=== PATIENT | male | born 1955 ===

== ENCOUNTER 2025-04-30 06:27 | Day surgery (SDC) | payer BC, SELFPAY ==
[2025-04-16 14:07] VITALS: BMI 33.7
[2025-04-30] VITALS (13 sets, daily range): BP systolic 115–159; BP diastolic 72–92; BMI 33.7
--- NOTE | 2025-04-30 10:31 | HP.FOC2 ---
Focused History & Physical
Chief Complaint
HPI:
Chief Complaint: Right inguinal hernia
HPI / Indication for Planned Procedure: This is a 69-year-old male with a symptomatic right inguinal hernia, possible left. Will plan for a robotic right, possible left inguinal hernia repair with mesh.
Relevant Past Medical History: Negative
Relevant Social History: Negative
Relevant Family History: Negative
Relevant Past Surgical History: Negative
Review of Systems
Review of Pertinent Systems: All Systems Negative
Medication
See Medication form for detailed medications: Yes
Medication List (including Herbals & OTC):
Super Beta Prostate Advanced 1 tab PO DAILY 04/23/25
Triple Action Joint Health 1 cap PO DAILY 04/23/25
cyanocobalamin (vitamin B-12) 1,000 mcg capsule 1,000 mcg PO DAILY 04/23/25
ibuprofen 200 mg tablet 200 - 400 mg PO PRN PRN PAIN 04/23/25
multivitamin 1 tab PO DAILY 04/23/25
psyllium husk 2 cap PO DAILY 04/23/25
sildenafil 100 mg tablet 50 mg PO PRN PRN ED 04/23/25
Medications Reviewed: Yes
Allergies and Reactions
Patient has Allergies: No
Noted Allergies and Reactions:
Allergy/AdvReac Type Severity Reaction Status Date / Time
No Known Allergies Allergy Verified 04/23/25 09:12
Pertinent Physical Exam
All Other Systems: Negative
Head/Neck: Normal
Diagnosis / Assessment
This is a 69-year-old male with a symptomatic right inguinal hernia, possible left. Will plan for a robotic right, possible left inguinal hernia repair with mesh.
Plan / Procedure
This is a 69-year-old male with a symptomatic right inguinal hernia, possible left. Will plan for a robotic right, possible left inguinal hernia repair with mesh.
Anesthesia/Sedation to be done by Anesthesia Provider: Yes
[2025-04-30] MEDS: TYLENOL 1000 MG PO (10:43)
[2025-04-30] MEDS: NORMOSOL-R/PLASMALYTE-A 1000 IV (10:44)
--- NOTE | 2025-04-30 10:57 | W.SUR.PREOP ---
Pre-Operative Surgical Note
-
I have examined this patient prior to the performance of the scheduled procedure.
The patient's condition is unchanged from the time of the current History and
Physical and the patient is able to undergo the scheduled procedure.
--- NOTE | 2025-04-30 12:48 | W.IMMPOSTOP ---
Surgical Immed Post Op Note
-
Primary Surgeon: Lino Burk MD
Assisting Surgeon: None
Pre-op Diagnosis: Right inguinal hernia
Post-op Diagnosis: Bilateral inguinal hernias
Procedure Performed: Robotic bilateral inguinal hernia repairs with mesh
Anesthesia Type: General
Specimen / Cultures: None
Estimated Blood Loss: 3 cc
Complications: None
Operative Findings: The patient was noted to have a right indirect inguinal hernia with a small direct component as well as a medium sized left direct hernia. After achieving the critical view of the MPO bilaterally the spaces were reinforced with
large 3D max parts mid weight uncoated polypropylene mesh.
--- NOTE | 2025-04-30 12:49 | OR.RPT ---
Operative Report
Operative Report
Patient Name: Brian Bonner
: 1955
Date of Operation: 04/30/2025
Preoperative Diagnosis: Reducible Inguinal hernia, right
Postoperative Diagnosis: Bilateral inguinal hernias
Procedure(s):
1. Robotic Inguinal Hernia Repair with mesh, bilateral (GILMA approach)
Surgeon(s):
Dr. Burk
Wheel Fitter(s):
GAIL Flowers
Anesthesia: General
Estimated Blood Loss: 3 cc
Urine Output: None
Drains/Lines/Implants: Large 3D Max Bard mid weight uncoated polypropylene mesh x 2
Specimens: None
Indication for surgery: The patient has a history of groin pain and noted on exam to have a right possible left inguinal Hernia(s). Following review of therapeutic options they have elected to undergo a minimally invasive repair.
Operative Findings: The patient was noted to have a right indirect inguinal hernia with a small direct component as well as a medium sized left direct hernia. After achieving the critical view of the MPO bilaterally the spaces were reinforced with
large 3D max parts mid weight uncoated polypropylene mesh.
Details of the operation:
The patient was brought to the Operating Room and placed in the supine position with the arms tucked. IV antibiotics were infused and Venodyne stockings placed. Following uneventful induction of general endotracheal anesthesia, an orogastric tube
was placed. The abdomen was prepped and draped in the usual sterile fashion. The abdomen was entered using a Veress technique which required 1 pass(es), pneumoperitoneum to 15 mmHg was obtained without difficulty. An 8mm trochar was passed through
the abdominal wall roughly 20 cm cephalad to the inguinal canal. We then confirmed that no inadvertent injury was made while passing the trocar or Veress needle. We then placed two additional 8 mm ports in the left upper and right upper quadrants.
We then docked the robot with a Prograsper in the left hand port and monopolar scissors in the right. An obvious right indirect inguinal hernia was immediately visible, there was also indenting in the direct space on the left side concerning for
contralateral hernia as well as palpated on exam in the office. We then began on the right side by creating a flap at the level of the ASIS laterally working our way medially to the medial umbilical fold. Staying onto the peritoneum we were able
to circumferentially dissect around the hernia sac and and peel it off of the underlying spermatic cord and testicular vessels, taking care to preserve them. Medially we identified the midline pubis as well as Mal's ligament and ensured to
dissect 2 cm below the pubic rim over the bladder. After exposure of the entire myopectineal orifice we identified and reduced: A medium sized indirect inguinal hernia, a small direct inguinal hernia, no femoral hernia, and no cord lipoma. We then
extended our flap towards the left and repeated the same dissection. After exposure of the entire myopectineal orifice we identified and reduced a medium size direct inguinal hernia, there was no indirect or femoral components. There was no cord
lipoma.
We then fixated 2 large 3D max Bard mid weight uncoated polypropylene mesh as with 2-0 Vicryl sutures at coopers medially, superior laterally as well as in the midline. The single flap was then closed with 2 2-0 barbed Monocryl sutures. During the
closure of the flap an Angiocath was inserted and 20 cc of quarter percent Marcaine was instilled. The area in the flap cavity was then evacuated of air confirming that the mesh was flush and there were no folds. A small rent in the peritoneum was
noted and closed with 2-0 Vicryl. All needles and instruments were then removed and the robot was undocked. The abdomen was then desufflated, and pneumoperitoneum evacuated. All skin sites were then closed with 4-0 Monocryl followed by Dermabond.
Counts were correct and overall, the patient tolerated the procedure well and was taken to the Recovery Room postoperatively in stable condition.
I was the attending physician and performed the procedure with assistance of the PA above. The assistance of GAIL Flowers was required due to the complexity of the procedure. During the procedure Chelle assisted with port placement, instrument
and needle exchanges, and closure of the wound. I was present for all portions of the case, excluding skin closure.
Lino Burk MD
== END 2025-04-30 15:30 | disposition home or self-care (01) ==
LOC: SDS 06:27
PROVIDERS: ATTENDING PHYSICIAN Surgery; FAMILY PHYSICIAN Family Medicine
DX: K40.20 Bilateral inguinal hernia, without obstruction or gangrene, not specified as recurrent (principal)
CPT/HCPCS: 49650; 36415; 93005; C1781